=== PATIENT | female | born 1990 ===

== ENCOUNTER 2018-03-18 18:47 | Emergency (ER) | payer BC ==
[2018-03-18 19:27] VITALS: BP 141/91
--- NOTE | 2018-03-18 19:34 | UC ---
Complaint Female HPI - HPI Summary HPI Summary: 27 yo female presents with urinary pressure, burning, and frequency starting earlier today. She says she has never had a UTI before, but is actively trying to get with her and admits to not urinating after intercourse as much as she should. Denies fever, chills, abdominal pain, n/v/d/c, vaginal bleeding or discharge. - History Of Current Complaint Chief Complaint: UCGU Stated Complaint: URINARY Time Seen by Provider: 03/18/18 19:33 Hx Obtained From: Patient Hx Last Menstrual Period: 02/26/18 Onset/Duration: Sudden Onset Severity Initially: Mild Severity Currently: Mild Pain Intensity: 3 Pain Scale Used: 0-10 Numeric - Allergies/Home Medications Allergies/Adverse Reactions: Allergies Allergy/AdvReac Type Severity Reaction Status Date / Time No Known Allergies Allergy Verified 03/18/18 19:27 Home Medications: Home Medications Pnv No.95/Ferrous Fum/Folic AC [ Vitamin/Iron 28-0.8 mg] 1 tab PO DAILY 03/18/18 [History Confirmed 03/18/18] PMH/Surg Hx/FS Hx/Imm Hx - Additional Past Medical History Additional PMH: None - Surgical History Surgical History: None - Family History Known Family History: Positive: None - Social History Occupation: Employed Full-time Lives: With Family Alcohol Use: Occasionally Substance Use Type: None Smoking Status (MU): Never Smoked Tobacco Review of Systems Constitutional: Negative Skin: Negative Respiratory: Negative Cardiovascular: Negative Gastrointestinal: Negative Genitourinary: Dysuria, Frequency Neurovascular: Negative Neurological: Negative Psychological: Negative All Other Systems Reviewed And Are Negative: Yes Physical Exam - Summary Physical Exam Summary: GENERAL: NAD. WDWN. No pain distress. SKIN: No rashes, sores, lesions, or open wounds. NECK: Supple. Nontender. No lymphadenopathy. CHEST: CTAB. No r/r/w. No accessory muscle use. Breathing comfortably and in no distress. CV: RRR. Without m/r/g. Pulses intact. Cap refill <2seconds ABDOMEN: Soft. NTTP. No distention or guarding. No CVA tenderness. Bowel sounds present NEURO: Alert. PSYCH: Age appropriate behavior. Triage Information Reviewed: Yes Vital Signs: Initial Vital Signs Temp 98.1 F 03/18/18 19:22 Pulse 79 03/18/18 19:22 Resp 15 03/18/18 19:22 BP 141/91 03/18/18 19:22 Pulse Ox 100 03/18/18 19:22 Laboratory Tests 03/18/18 03/18/18 19:34 19:37 POC Urine Color Other POC Urine Clarity Clear POC Urine pH 7.0 POC Ur Specif Phil Campbell <= 1.005 L POC Urine Protein Negative POC Ur Glucose (UA) Negative POC Urine Ketones Negative POC Urine Blood 3+ A POC Urine Nitrite Negative POC Urine Bilirubin Negative POC Urine Urobilinogen 0.2 POC U Leukocyte Esteras 1+ A POC Ur Test Negative Vital Signs Reviewed: Yes Complaint Female Dx - Course Course Of Treatment: UTI - Differential Dx/Diagnosis Provider Diagnoses: UTI Discharge - Sign-Out/Discharge Documenting (check all that apply): Patient Departure All imaging exams completed and their final reports reviewed: No Studies - Discharge Plan Condition: Stable Disposition: HOME Prescriptions: Sulfamethox/Trimethoprim DS* [Bactrim DS 800/160 TAB*] 1 tab PO BID #10 tab Patient Education Materials: Urinary Tract Infection in Women (ED) Referrals: Viviane Philip NP [Primary Care Provider] - Additional Instructions: If you develop a fever, shortness of breath, chest pain, new or worsening symptoms - please call your PCP or go to the ED. Your blood pressure was mildly elevated at todays visit. Please see your primary provider within 4 weeks for recheck and re-evaluation. - Billing Disposition and Condition Condition: STABLE Disposition: Home
== END 2018-03-18 19:52 | disposition home or self-care (01) ==
LOC: UCCORT 18:47
DX: N39.0 Urinary tract infection, site not specified (principal)
CPT/HCPCS: 81003; 84702; 87077; 87086; 99212; G0463